=== PATIENT | female | born 1980 | race Hispanic/Latino ===

== ENCOUNTER 2019-02-23 23:19 | Emergency (ER) | payer BC ==
[2019-02-24 00:08] LABS: Protime INR 1.09
[2019-02-24 00:09] LABS: Absolute Lymphocytes (CBC) 2.8 K/uL (0.7-4.9); Absolute Monocytes 0.7 K/uL (0.1-1.3); Absolute Neutrophil 5.3 K/uL (1.8-8.0); Basophils % 0.3 % (0-1.3); Eosinophils % 3.8 % (0-4.4); Lymphocytes % 30.5 % (15.3-44.8); Monocytes % 7.6 % (3.3-12.3); RBC Red Blood Cell Count 4.45 M/uL (3.86-4.86)
[2019-02-24 00:21] LABS: ALT/SGPT 15 U/L (12-78); AST/SGOT 10 U/L (15-37); Albumin 3.4 g/dL (3.4-5.0); Alkaline Phosphatase 63 U/L (45-117); BUN Blood Urea Nitrogen 10 mg/dL (7-18); Bicarbonate 24 mmol/L (21-32); Bilirubin Direct 0.1 mg/dL (0-0.2); Bilirubin Total 0.3 mg/dL (0.2-1.0); Glucose Level 114 mg/dL (74-106); NT PRO-BNP 52 pg/mL (<125); Potassium 3.6 mmol/L (3.5-5.1); Protein, Total 6.9 g/dL (6.4-8.2); Sodium Level 141 mmol/L (136-145); Troponin (Emerg Dept Use Only) < 0.02 ng/mL (0.0-0.045)
--- NOTE | 2019-02-24 01:16 | ER ---
Nurse's Notes [facility] Name: Justine Jensen Age: 38 yrs Sex: Female : 1980 Arrival Date: 02/23/2019 Time: 23:20 Bed 24 Private MD: Reagan Fernandes T Diagnosis: Chest pain, unspecified Presentation: 02/23 23:26 Presenting complaint: Patient states: Chest pain radiating to left arm and jaw for 45 la1 mins, started while resting in bed. Transition of care: patient was not received from another setting of care. Onset of symptoms was February 23, 2019. Risk Assessment: Do you want to hurt yourself or someone else? Patient reports no desire to harm self or others. Initial Sepsis Screen: Does the patient meet any 2 criteria? No. Patient's initial sepsis screen is negative. Does the patient have a suspected source of infection? No. Patient's initial sepsis screen is negative. Care prior to arrival: None. 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 - Social history:: Smoking status: Patient/guardian denies using tobacco. - Ebola Screening: : No symptoms or risks identified at this time. Screenin/31 00:11 Abuse screen: Denies threats or abuse. Denies injuries from another. Nutritional mg2 screening: No deficits noted. Tuberculosis screening: No symptoms or risk factors identified. Fall Risk IV access (20 points). Assessment: 00:09 General: Appears in no apparent distress. comfortable, Behavior is calm, cooperative. mg2 Pain: Complains of pain in chest Pain radiates to neck and left arm Pain currently is 8 out of 10 on a pain scale. Quality of pain is described as heavy, pressure, tingling, Pain began gradually, 1 hour ago. Is intermittent. Neuro: Level of Consciousness is awake, alert, obeys commands, Oriented to person, place, time, situation. Cardiovascular: Capillary refill < 3 seconds Patient's skin is warm and dry. Cardiovascular: Reports chest pain. Respiratory: Airway is patent Respiratory effort is even, unlabored, Respiratory pattern is regular, symmetrical. GI: No signs and/or symptoms were reported involving the gastrointestinal system. : No signs and/or symptoms were reported regarding the genitourinary system. EENT: No signs and/or symptoms were reported regarding the EENT system. Derm: Skin is intact, is healthy with good turgor, Skin is pink, warm \T\ dry. normal. Musculoskeletal: Circulation, motion, and sensation intact. Capillary refill < 3 seconds. 01:29 Reassessment: Patient denies pain at this time. Patient states feeling better. mg2 Vital Signs: 02/23 23:27 BP 135 / 89; Pulse 89; Resp 16; Temp 98.1; Pulse Ox 98% on R/A; Weight 65.77 kg; Height la1 5 ft. 1 in. (154.94 cm); Pain 8/10; 02/24 01:14 BP 118 / 74; Pulse 85; Resp 18; Pulse Ox 99% on R/A; Pain 0/10; mg2 02/23 23:27 Body Mass Index 27.40 (65.77 kg, 154.94 cm) la1 ED Course: 02/23 23:20 Patient arrived in ED. am2 23:21 Reagan Fernandes MD is Private Physician. am2 23:27 Triage completed. la1 23:27 Arm band placed on left wrist. la1 23:36 Mahesh Cervantes, [place] is Primary Nurse. mg2 23:39 Gary Tolentino PA is PHCP. jr8 23:39 Gunner Mann MD is Attending Physician. jr8 02/24 00:11 No provider procedures requiring assistance completed. Inserted saline lock: 20 gauge mg2 in right antecubital area, using aseptic technique. Blood collected. Patient maintains SpO2 saturation greater than 95% on room air. 00:16 Patient has correct armband on for positive identification. panel monitor on. Pulse mg2 ox on. NIBP on. 00:32 XRAY Chest (1 view) In Process Unspecified. EDMS 01:15 Reagan Fernandes MD is Referral Physician. jr8 01:29 IV discontinued, intact, bleeding controlled, No redness/swelling at site. Pressure mg2 dressing applied. Administered Medications: No medications were administered Outcome: 01:15 Discharge ordered by MD. mccord 01:29 Discharged to home ambulatory, with family. mg2 :29 Condition: stable 01:29 Discharge instructions given to patient, family, Instructed on discharge instructions, follow up and referral plans. Demonstrated understanding of instructions, follow-up care. 01:30 Patient left the ED. mg2 Signatures: Dispatcher [employer] EDMS Gary Tolentino PA PA jr8 Leonardo Jacobson RN RN Cyndie Finch Michele, RN RN mg2
--- NOTE | 2019-02-24 01:16 | EDPHYS ---
Physician Documentation [facility] Name: Justine Jensen Age: 38 yrs Sex: Female : 1980 Arrival Date: 02/23/2019 Time: 23:20 Bed 24 Private MD: Reagan Fernandes T ED Physician Gunner Mann HPI: 02/24 01:08 This 38 yrs old Female presents to ER via Ambulatory with complaints of Chest jr8 Pain, Numbness Of Arm. 01:08 The patient or guardian reports chest pain that is located primarily in the anterior jr8 chest wall, left. The pain radiates to the left arm. Associated signs and symptoms: The patient has no apparent associated signs or symptoms. The chest pain is described as a pressure. Duration: The patient or guardian reports a single episode, that is now resolved. Modifying factors: The symptoms are alleviated by nothing. the symptoms are aggravated by nothing. Severity of pain: At its worst the pain was moderate in the emergency department the pain has resolved. The patient has not experienced similar symptoms in the past. The patient has not recently seen a physician. 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 - Social history:: Smoking status: Patient/guardian denies using tobacco. - Ebola Screening: : No symptoms or risks identified at this time. ROS: 02/24 01:08 Eyes: Negative for injury, pain, redness, and discharge, ENT: Negative for injury, jr8 pain, and discharge, Neck: Negative for injury, pain, and swelling, Respiratory: Negative for shortness of breath, cough, wheezing, and pleuritic chest pain, Abdomen/GI: Negative for abdominal pain, nausea, vomiting, diarrhea, and constipation, Back: Negative for injury and pain, MS/Extremity: Negative for injury and deformity, Skin: Negative for injury, rash, and discoloration, Neuro: Negative for headache, weakness, numbness, tingling, and seizure. Cardiovascular: Positive for chest pain, Negative for edema, orthopnea, palpitations, paroxysmal nocturnal dyspnea. Exam: 01:08 Eyes: Pupils equal round and reactive to light, extra-ocular motions intact. Lids and jr8 lashes normal. Conjunctiva and sclera are non-icteric and not injected. Cornea within normal limits. Periorbital areas with no swelling, redness, or edema. ENT: Nares patent. No nasal discharge, no septal abnormalities noted. Tympanic membranes are normal and external auditory canals are clear. Oropharynx with no redness, swelling, or masses, exudates, or evidence of obstruction, uvula midline. Mucous membranes moist. Neck: Trachea midline, no thyromegaly or masses palpated, and no cervical lymphadenopathy. Supple, full range of motion without nuchal rigidity, or vertebral point tenderness. No Meningismus. Chest/axilla: Normal chest wall appearance and motion. Nontender with no deformity. No lesions are appreciated. Cardiovascular: Regular rate and rhythm with a normal S1 and S2. No gallops, murmurs, or rubs. Normal PMI, no JVD. No pulse deficits. Respiratory: Lungs have equal breath sounds bilaterally, clear to auscultation and percussion. No rales, rhonchi or wheezes noted. No increased work of breathing, no retractions or nasal flaring. Abdomen/GI: Soft, non-tender, with normal bowel sounds. No distension or tympany. No guarding or rebound. No evidence of tenderness throughout. Back: No spinal tenderness. No costovertebral tenderness. Full range of motion. Skin: Warm, dry with normal turgor. Normal color with no rashes, no lesions, and no evidence of cellulitis. MS/ Extremity: Pulses equal, no cyanosis. Neurovascular intact. Full, normal range of motion. Neuro: Awake and alert, GCS 15, oriented to person, place, time, and situation. Cranial nerves II-XII grossly intact. Motor strength 5/5 in all extremities. Sensory grossly intact. Cerebellar exam normal. Normal gait. Vital Signs: 02/23 23:27 BP 135 / 89; Pulse 89; Resp 16; Temp 98.1; Pulse Ox 98% on R/A; Weight 65.77 kg; Height la1 5 ft. 1 in. (154.94 cm); Pain 8/10; 02/24 01:14 BP 118 / 74; Pulse 85; Resp 18; Pulse Ox 99% on R/A; Pain 0/10; mg2 02/23 23:27 Body Mass Index 27.40 (65.77 kg, 154.94 cm) la1 MDM: 02/23 23:39 Patient medically screened. jr8 02/24 01:08 Data reviewed: vital signs, nurses notes, lab test result(s), EKG, radiologic studies, jr8 plain films, and as a result, I will discharge patient. Data interpreted: Pulse oximetry: on room air is 98 %. Interpretation: normal. Counseling: I had a detailed discussion with the patient and/or guardian regarding: the historical points, exam findings, and any diagnostic results supporting the discharge/admit diagnosis, lab results, radiology results, the need for outpatient follow up, a family practitioner, to return to the emergency department if symptoms worsen or persist or if there are any questions or concerns that arise at home. ED course: First troponin negative. No acute findings on Xray or ECG. rest of blood work unremarkable. Patient still without CP. Advised her that we should trend and do a second troponin at the 4 hour rad of symptom onset. Patient feels much better and wants to go home. Advised her that I cannot give reasonable exclusion of cardiac event without doing another troponin. Patient understands but still wants to go home. Knows to come back if worse . 02/23 23:37 Order name: Basic Metabolic Panel mg2 02/23 23:37 Order name: CBC with Diff mg2 02/23 23:37 Order name: LFT's mg2 02/23 23:37 Order name: Magnesium mg2 02/23 23:37 Order name: NT PRO-BNP mg2 02/23 23:37 Order name: PT-INR; Complete Time: 00:21 mg2 02/23 23:37 Order name: Troponin (emerg Dept Use Only); Complete Time: 00:27 mg2 02/23 23:37 Order name: XRAY Chest (1 view) mg2 02/23 23:38 Order name: Basic Metabolic Panel; Complete Time: 00:27 EDMS 02/23 23:38 Order name: CBC with Automated Diff; Complete Time: 00:21 EDMS 02/23 23:38 Order name: Liver (Hepatic) Function; Complete Time: 00:27 EDMS 02/23 23:38 Order name: Magnesium; Complete Time: 00:27 EDMS 02/23 23:38 Order name: NT PRO-BNP; Complete Time: 00: EDFL 02/23 23:37 Order name: Cardiac monitoring; Complete Time: :47 [facility] 02/23 23:37 Order name: EKG - Nurse/Tech; Complete Time: :47 mg2 02/23 23:37 Order name: IV Saline Lock; Complete Time: :47 mg2 02/23 23:37 Order name: Labs collected and sent; Complete Time: : mg2 02/23 23:37 Order name: O2 Per Protocol; Complete Time: :47 mg2 02/23 23:37 Order name: O2 Sat Monitoring; Complete Time: :47 mg2 Administered Medications: No medications were administered Disposition: Co-signature as Attending Physician, Gunner Mann MD. alan Disposition: 02/24/19 01:15 Discharged to Home. Impression: Chest pain, unspecified. - Condition is Stable. - Discharge Instructions: Nonspecific Chest Pain, Chest Pain Observation. - Medication Reconciliation Form, Thank You Letter, Antibiotic Education, Prescription Opioid Use form. - Follow up: Reagan Fernandes MD; When: 2 - 3 days; Reason: Recheck today's complaints, Continuance of care, Re-evaluation by your physician. - Problem is new. - Symptoms have improved. Signatures: Dispatcher [employer] [facility] Gunner Mann MD MD pkl Gary Tolentino PA PA jr8 Leonardo Jacobson RN RN la1 Mahesh Cervantes RN RN mg2 Corrections: (The following items were deleted from the chart) 01:15 02/24/2019 01:15 Discharged to Home. Impression: Chest pain, unspecified. mg2 Condition is Stable. Forms are Medication Reconciliation Form, Thank You Letter, Antibiotic Education, Prescription Opioid Use. Follow up: Reagan Fernandes; When: 2 - 3 days; Reason: Recheck today's complaints, Continuance of care, Re-evaluation by your physician. Problem is new. Symptoms have improved. jr8
--- NOTE | 2019-02-24 08:49 | RAD REPORT ---
EXAM DESCRIPTION: RAD - Chest Single View - 02/24/2019 12:31 am CLINICAL HISTORY: Chest pain radiating to the left arm COMPARISON: May 2016 TECHNIQUE: AP portable chest image was obtained 0008 hours . FINDINGS: Lungs are clear. Lung markings are similar to comparison. Heart, vasculature and lung rad ings are all fractionally accentuated due to shallow inspiration Heart and vasculature are normal. No measurable pleural effusion and no pneumothorax. No acute bony abnormality seen. No acute aortic fin dings suspected. IMPRESSION: No acute cardiopulmonary process.
== END 2019-02-24 01:30 | disposition home or self-care (01) ==
LOC: ER 23:19
DX: R07.9 Chest pain, unspecified (principal)
CPT/HCPCS: 36415; 71045; 80048; 80076; 83735; 83880; 84484; 85025; 85610; 99285

== ENCOUNTER 2021-05-12 16:14 | Observation (INO) | payer BC ==
--- OUTSIDE RECORDS SUMMARY | 2021-05-12 16:16 | XMS REPORT | Continuity of Care Document ---
:1980 Author Organization [facility] t Address [address] [place] [address] Care Team Providers Name Role Phone Lab, Fam Pob I Attending Clinician Unavailable Doctor Unassigned, Name Attending Clinician Unavailable Problems This patient has no known problems. Allergies, Adverse Reactions, Alerts This patient has no known allergies or adverse reactions. Medications This patient has no known medications. Procedures This patient has no known procedures. Encounters Start End Encounter Admission Attending Care Care Encounter Source Date/Time Date/Time Type Type Clinicians Facility Department ID 2020-11-30 2020-11-30 Laboratory Lab, Adc [facility] [id number] 09:24:01 09:44:01 Only Fam Pob I Health [id number] [place] [id number] [facility] [id number] [address] 2020-11-30 2020-11-30 Letter Doctor SYBIL [id number] 00:00:00 00:00:00 (Out) UnassignedESME [id number] [place] [facility] [id number] 044 Results This patient has no known results.
[2021-05-12 17:25] LABS: Urine Blood 3+ (Negative); Urine Glucose Negative (Negative); Urine Protein Negative (Negative); Urine Specific Gravity 1.015 (1.005-1.030)
[2021-05-12] MEDS ORDERED: MORPHINE 4 MG/ML SYR ONE (18:04)
[2021-05-12] MEDS ORDERED: ONDANSETRON 4 MG/2 ML VIAL ONE (18:04)
[2021-05-12 18:05] LABS: ALT/SGPT 33 U/L (12-78); AST/SGOT 14 U/L (15-37); Absolute Lymphocytes (CBC) 2.4 K/uL (0.7-4.9); Albumin 3.9 g/dL (3.4-5.0); Alkaline Phosphatase 129 U/L (45-117); BUN Blood Urea Nitrogen 10 mg/dL (7-18); Basophils % 0.8 % (0-1.3); Bicarbonate 26 mmol/L (21-32); Bilirubin Direct 0.1 mg/dL (0-0.2); Bilirubin Total 0.4 mg/dL (0.2-1.0); Glucose Level 91 mg/dL (74-106); Hematocrit 40.9 % (36.0-45.0); Lipase 204 U/L (73-393); MPV 8.7 fL (7.6-11.3); Potassium 3.9 mmol/L (3.5-5.1); Protein, Total 7.9 g/dL (6.4-8.2); RBC Red Blood Cell Count 4.82 M/uL (3.86-4.86); Sodium Level 140 mmol/L (136-145)
--- NOTE | 2021-05-12 18:45 | RAD REPORT ---
EXAM DESCRIPTION: CTAbdomen Pelvis W Contrast - 05/12/2021 6:22 pm CLINICAL HISTORY: Abdominal pain. ABD PAIN COMPARISON: No comparisons TECHNIQUE: Biphasic CT imaging of the abdomen and pelvis was performed with 100 ml non-ionic IV cont rast. All CT scans are performed using dose optimization technique as appropriate and may include automated exposure control or mA/KV adjustment according to patient size. FINDINGS: The lung bases are clear. The liver, spleen, adrenal glands and kidneys are within normal limits. Subtle edematous appearance t o the midbody the pancreas. No bowel obstruction, free air, free fluid or abscess. The appendix is normal. No evidence of signi ficant lymphadenopathy. No suspicious bony findings. 36 mm left ovarian cyst. IMPRESSION: Early/mild findings of acute pancreatitis are possible. 36 mm left ovarian cyst or follicle.
[2021-05-12 19:23] LABS: Urine Specific Gravity/Preg 1.015 (1.005-1.030)
--- NOTE | 2021-05-12 19:30 | RAD REPORT ---
EXAM DESCRIPTION: US - Abdomen Exam Limited - 05/12/2021 7:11 pm CLINICAL HISTORY: abdominal pain COMPARISON: Abdomen Exam Limited dated 11/07/2016; Abdomen Pelvis W Contrast dated 05/12/2021 FINDINGS: The gallbladder demonstrates no gallstones. No pericholecystic fluid or gallbladder wall t hickening. The common bile duct is prominent measuring 9 mm and contains a small echogenic structure. . The liver demonstrates no findings of intrahepatic biliary dilatation. IMPRESSION: No gallstones are evident in gallbladder. Common bile duct is mildly prominent measuring 9 mm with questionable small echogenic structure withi n the a stone. Followup MRCP would be helpful evaluation.
--- NOTE | 2021-05-12 20:52 | ER ---
Nurse's Notes [facility] Name: Justine Jensen Age: 40 yrs Sex: Female : 1980 Arrival Date: 05/12/2021 Time: 16:15 Bed 14 Private MD: Reagan Fernandes T Diagnosis: Acute pancreatitis, unspecified Presentation: 05/12 16:48 Chief complaint: Patient states: Epigastric, upper abdominal pain radiating to the back ca1 started Monday. Denies N/V/D. Coronavirus screen: Client denies travel out of the [place] in the last 14 days. At this time, the client does not indicate any symptoms associated with coronavirus-19. Ebola Screen: Patient negative for fever greater than or equal to 101.5 degrees Fahrenheit, and additional compatible Ebola Virus Disease symptoms Patient denies exposure to infectious person. Patient denies travel to an Ebola-affected area in the 21 days before illness onset. No symptoms or risks identified at this time. Initial Sepsis Screen: Does the patient meet any 2 criteria? No. Patient's initial sepsis screen is negative. Does the patient have a suspected source of infection? No. Patient's initial sepsis screen is negative. Risk Assessment: Do you want to hurt yourself or someone else? Patient reports no desire to harm self or others. Onset of symptoms was May 12, 2021. 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 Flu vaccine is not up to date. - Social history:: Smoking status: Patient denies any tobacco usage or history of. Screenin:16 Abuse screen: Denies threats or abuse. Nutritional screening: No deficits noted. tw2 Tuberculosis screening: No symptoms or risk factors identified. Fall Risk None identified. Assessment: 17:12 Reassessment: pt given urine specimen cup and wipes for urine collection at this time. tw2 17:27 Reassessment: provider at bedside at this time. tw2 17:29 General: Appears in no apparent distress. uncomfortable, well groomed, Behavior is tw2 calm, cooperative, appropriate for age. Pain: Complains of pain in epigastric area Pain radiates to back. Neuro: Level of Consciousness is awake, alert, obeys commands, Oriented to person, place, time, situation. Cardiovascular: Patient's skin is warm and dry. Respiratory: Airway is patent Respiratory effort is even, unlabored, Respiratory pattern is regular, symmetrical. GI: Bowel sounds present X 4 quads. Abd is soft X 4 quads Reports epigastric pain, Patient currently denies diarrhea, nausea, vomiting. : No signs and/or symptoms were reported regarding the genitourinary system. EENT: No signs and/or symptoms were reported regarding the EENT system. Derm: No signs and/or symptoms reported regarding the dermatologic system. Musculoskeletal: Range of motion: intact in all extremities. 18:28 Reassessment: Patient appears in no apparent distress at this time. No changes from tw2 previously documented assessment. Patient and/or family updated on plan of care and expected duration. Pain level reassessed. Patient is alert, oriented x 3, equal unlabored respirations, skin warm/dry/pink. pt back from CT at this time needing to use the restroom at this time. 19:08 Reassessment: Patient appears in no apparent distress at this time. Patient and/or ad5 family updated on plan of care and expected duration. Pain level reassessed. Patient is alert, oriented x 3, equal unlabored respirations, skin warm/dry/pink. 20:15 Reassessment: Patient appears in no apparent distress at this time. Patient and/or ad5 family updated on plan of care and expected duration. Pain level reassessed. Patient is alert, oriented x 3, equal unlabored respirations, skin warm/dry/pink. Patient states feeling better. 21:50 Reassessment: Patient appears in no apparent distress at this time. No changes from ad5 previously documented assessment. Patient and/or family updated on plan of care and expected duration. Pain level reassessed. Vital Signs: 16:48 BP 125 / 81; Pulse 92; Resp 18 S; Temp 97.8(TE); Pulse Ox 100% on R/A; Pain 10/10; ca1 17:54 BP 123 / 87; Pulse 81; Resp 17; Pulse Ox 99% on R/A; tw2 19:06 BP 123 / 83; Pulse 69; Resp 16 S; Pulse Ox 98% on R/A; ad5 20:55 BP 127 / 84; Pulse 81; Resp 16 S; Pulse Ox 99% on R/A; ad5 21:50 BP 121 / 74; Pulse 88; Resp 16 S; Pulse Ox 98% on R/A; ad5 ED Course: 16:15 Patient arrived in ED. am2 16:15 Reagan Fernandes MD is Private Physician. am2 16:50 Triage completed. ca1 16:50 Arm band placed on right wrist. ca1 17:14 Basim Vegas PA is PHCP. jmm 17:14 Shaun Swenson MD is Attending Physician. jmm 17:16 Erica Valencia RN is Primary Nurse. tw2 17:28 Placed in gown. Bed in low position. Pulse ox on. NIBP on. tw2 17:50 Inserted saline lock: 20 gauge in right antecubital area, using aseptic technique. tw2 Blood collected. 18:22 CT Abd/Pelvis - IV Contrast Only In Process Unspecified. EDMS 19:11 US Abdomen Limited In Process Unspecified. EDMS 19:43 Primary Nurse role handed off by Erica Valencia, [place] eb 20:16 Memo Rollins is Primary Nurse. ad5 20:51 Roly Christian is Hospitalizing Provider. [facility] 22:07 No provider procedures requiring assistance completed. Patient admitted, IV remains in ad5 place. Administered Medications: 17:50 Drug: Zofran (Ondansetron) 4 mg Route: IVP; Site: right antecubital; tw2 19:02 Follow up: Response: No adverse reaction tw2 17:52 Drug: morphine 4 mg {Note: RASS 0.} Route: IVP; Site: right antecubital; tw2 19:01 Follow up: Response: No adverse reaction; Pain is decreased; RASS: Alert and Calm (0) tw2 Outcome: 20:51 Decision to Hospitalize by Provider. jmm 22:07 Admitted to ad5 22:07 Condition: stable 22:11 Admitted to Med/surg via wheelchair, Report called to BR[place]ON Isidro ad5 22:11 Instructed on the need for admit. 22:18 Patient left the ED. ad5 Signatures: Dispatcher [employer] EDMS MickaBasim pang PA PA jmm Wise, Tara, RN RN tw2 Cyndie Mcclelland am2 Letty Sosa Cheryl, RN RN ca1 Memo Rollins ad5
--- NOTE | 2021-05-12 20:52 | EDPHYS ---
Physician Documentation [facility] Name: Justine Jensen Age: 40 yrs Sex: Female : 1980 Arrival Date: 05/12/2021 Time: 16:15 Bed 14 Private MD: Reagan Fernandes T ED Physician Shaun Swenson HPI: 05/12 17:26 This 40 yrs old Female presents to ER via Ambulatory with complaints of jmm Abdominal Pain. 17:26 The patient presents with abdominal pain. Onset: The symptoms/episode began/occurred jmm gradually, 3 day(s) ago. The symptoms do not radiate. Associated signs and symptoms: Pertinent negatives: diarrhea, vomiting. The symptoms are described as achy. Modifying factors: The symptoms are alleviated by nothing, the symptoms are aggravated by nothing. This is a 40 year old female with no chronic medical conditions that presents to the ED with complaints of epigastric abdominal pain beginning this past Monday. Denies fever, vomiting, or diarrhea. . 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 Flu vaccine is not up to date. - Social history:: Smoking status: Patient denies any tobacco usage or history of. ROS: 17:26 Constitutional: Negative for fever, chills, and weight loss, Cardiovascular: Negative jmm for chest pain, palpitations, and edema, Respiratory: Negative for shortness of breath, cough, wheezing, and pleuritic chest pain. 17:26 Abdomen/GI: Positive for abdominal pain. 17:26 All other systems are negative. Exam: 17:26 Constitutional: This is a well developed, well nourished patient who is awake, alert, jmm and in no acute distress. Head/Face: atraumatic. Eyes: EOMI, no conjunctival erythema appreciated ENT: Moist Mucus Membranes Neck: Trachea midline, Supple Chest/axilla: Normal chest wall appearance and motion. Cardiovascular: Regular rate and rhythm. No edema appreciated Respiratory: Normal respirations, no respiratory distress appreciated 17:26 Back: Normal ROM Skin: General appearance color normal MS/ Extremity: Moves all extremities, no obvious deformities appreciated, no edema noted to the lower extremities Neuro: Awake and alert, normal gait Psych: Behavior is normal, Mood is normal, Patient is cooperative and pleasant 17:26 Abdomen/GI: Inspection: abdomen appears normal, Bowel sounds: normal, Palpation: soft, moderate abdominal tenderness, in the epigastric area. Vital Signs: 16:48 BP 125 / 81; Pulse 92; Resp 18 S; Temp 97.8(TE); Pulse Ox 100% on R/A; Pain 10/10; ca1 17:54 BP 123 / 87; Pulse 81; Resp 17; Pulse Ox 99% on R/A; tw2 19:06 BP 123 / 83; Pulse 69; Resp 16 S; Pulse Ox 98% on R/A; ad5 20:55 BP 127 / 84; Pulse 81; Resp 16 S; Pulse Ox 99% on R/A; ad5 21:50 BP 121 / 74; Pulse 88; Resp 16 S; Pulse Ox 98% on R/A; ad5 MDM: 17:26 Patient medically screened. kamilla 19:58 Data reviewed: vital signs, nurses notes. Counseling: I had a detailed discussion with arely the patient and/or guardian regarding: the historical points, exam findings, and any diagnostic results supporting the discharge/admit diagnosis, lab results, radiology results, the need for further work-up and treatment in the hospital. ED course: I discussed the patient with Dr. Patel whom will consult on the admission. . 20:50 ED course: I discussed the patient with [facility] whom accepted the patient to Dr. arely Christian's service. . 05/12 17:25 Order name: Urine Dipstick-Ancillary; Complete Time: 17:32 [facility] 05/12 17:27 Order name: Basic Metabolic Panel; Complete Time: 18:14 [facility] 05/12 17:27 Order name: CBC with Diff; Complete Time: 18:28 [facility] 05/12 17:27 Order name: Hepatic Function; Complete Time: 18:14 [facility] 05/12 17:27 Order name: Lipase; Complete Time: 18:14 [facility] 05/12 17:53 Order name: Urine --Ancillary (enter results); Complete Time: 19:27 05/12 17:27 Order name: IV Saline Lock; Complete Time: 17:54 [facility] 05/12 17:27 Order name: CT Abd/Pelvis - IV Contrast Only; Complete Time: 18:57 [facility] 05/12 17:29 Order name: US Abdomen Limited; Complete Time: 19:33 [facility] 05/12 21:20 Order name: CONS Physician Consult [facility] 05/12 21:45 Order name: SARS-COV-2 RT PCR [facility] 05/12 17:27 Order name: Labs collected and sent; Complete Time: 17:54 [facility] Administered Medications: 17:50 Drug: Zofran (Ondansetron) 4 mg Route: IVP; Site: right antecubital; tw2 19:02 Follow up: Response: No adverse reaction tw2 17:52 Drug: morphine 4 mg {Note: RASS 0.} Route: IVP; Site: right antecubital; tw2 19:01 Follow up: Response: No adverse reaction; Pain is decreased; RASS: Alert and Calm (0) tw2 Disposition: 05/13 07:27 Co-signature as Attending Physician, Shaun Swenson MD I agree with the assessment and kdr plan of care. Disposition: 05/12/21 20:51 Hospitalization ordered by Roly Christian for Inpatient Admission. Preliminary diagnosis is Acute pancreatitis, unspecified. - Bed requested for Telemetry/MedSurg (Inpatient). - Status is Inpatient Admission. ad5 - Condition is Stable. - Problem is new. - Symptoms are unchanged. Signatures: Dispatcher [employer] [facility] Starr Brady RN RN mw Rittger, Kevin, MD MD [facility] Basim Vegas PA PA [facility] Erica Valencia RN RN tw2 Paola Kyle RN RN ca1 Davidson, Andrea ad5 Corrections: (The following items were deleted from the chart) 05/12 20:52 20:32 CORONAVIRUS+MR.LAB.BRZ ordered. [facility] 21:59 20:51 Hospitalization Ordered by Roly Christian for Inpatient Admission. Preliminary diagnosis is Acute pancreatitis, unspecified. Bed requested for Telemetry/MedSurg (Inpatient). Status is Inpatient Admission. Condition is Stable. Problem is new. Symptoms are unchanged. [facility] 22:18 21:59 05/12/2021 20:51 Hospitalization Ordered by Roly Christian for Inpatient ad5 Admission. Preliminary diagnosis is Acute pancreatitis, unspecified. Bed requested for Telemetry/MedSurg (Inpatient). Status is Inpatient Admission. Condition is Stable. Problem is new. Symptoms are unchanged. mw
--- NOTE | 2021-05-12 21:53 | P.HP ---
Certification for Inpatient Patient admitted to: Inpatient With expected LOS: <2 Midnights Patient will require the following post-hospital care: None Practitioner: I am a practitioner with admitting privileges, knowledge of patient current condition, hospital course, and medical plan of care. Services: Services provided to patient in accordance with Admission requirements found in Title 42 Section 412.3 of the Code of Federal Regulations Patient History Date of Service: 05/12/21 Primary Care Provider: Dom Reason for admission: pancreatitis History of Present Illness: Ms. Jensen is a 40 yo F who presents with 10/10 epigastric abdominal pain radiating to the back beginning on Monday. Now, her pain is a 3/10 after receiving pain medication. She denies nausea and vomiting. Reports pain is worse with eating or drinking. At its worse, she couldn't drink water and it hurt to breathe. Symptoms mildly improve when she hunches over. She drinks alcohol occasionally. Was treated for H.pylori in 2017. CT shows early/mild findings of acute pancreatitis and a 36mm left ovarian cyst or follicle. Ultrasound shows no gallstones in gallbladder, CBD is mildly prominent measuring 9mm with questionable small echogenic structure within. Alk phos 129. Allergies No Known Allergies Allergy (Unverified 04/29/13 20:11) - Past Medical/Surgical History Has patient received pneumonia vaccine in the past: No Diabetic: No Past Medical History: Patient denies medical history -: tubal ligation -: c section Psychosocial/ Personal History: - Family History Mother -: Hypertension Father -: Lung disease, Diabetes - Social History Smoking Status: Never smoker Alcohol use: Yes CD- Drugs: No Caffeine use: Yes Place of Residence: Home Review of Systems 10-point ROS is otherwise unremarkable Gastrointestinal: Abdominal Pain, Other (poor appetite) Physical Examination - Physical Exam General: Alert, In no apparent distress HEENT: Atraumatic, PERRLA, Mucous membr. moist/pink, EOMI, Sclerae nonicteric Neck: Supple, 2+ carotid pulse no bruit, No LAD, Without JVD or thyroid abnormality Respiratory: Clear to auscultation bilaterally, Normal air movement Cardiovascular: Regular rate/rhythm, Normal S1 S2 Gastrointestinal: Normal bowel sounds, Soft and benign, Non-distended, No ascites, No masses, No rebound, No guarding, Tenderness Musculoskeletal: No tenderness Integumentary: No rashes Neurological: Normal gait, Normal speech, Normal strength at 5/5 x4 extr, Normal tone, Normal affect Lymphatics: No axilla or inguinal lymphadenopathy - Studies Laboratory Data (last 24 hrs) 05/12/21 17:37: WBC 11.10 H, Hgb 13.3, Hct 40.9, Plt Count 381 05/12/21 17:37: Sodium 140, Potassium 3.9, BUN 10, Creatinine 0.58, Glucose 91, Total Bilirubin 0.4, AST 14 L, ALT 33, Alkaline Phosphatase 129 H, Lipase 204 Assessment and Plan - Problems (Diagnosis) (1) Pancreatitis Current Visit: Yes Status: Acute Qualifiers: Chronicity: acute Pancreatitis type: unspecified pancreatitis type Acute pancreatitis complication: no infection or necrosis Qualified Code(s): K85.90 - Acute pancreatitis without necrosis or infection, unspecified (2) Dilated cbd, acquired Current Visit: Yes Status: Acute - Plan GI consulted MRCP in the AM, NPO continue IVF hydration with Lactated Ringers pain management as needed lipid panel pending Discharge Plan: Home Plan to discharge in: 24 Hours - Advance Directives Does patient have a Living Will: No Does patient have a Durable POA for Healthcare: No - Code Status/Comfort Care Code Status Assessed: Yes (full code ) Critical Care: No Time Spent Managing Pts Care (In Minutes): 70
[2021-05-12] MEDS ORDERED: MORPHINE 4 MG/ML SYR IV PRN (22:26)
[2021-05-12] MEDS ORDERED: KETOROLAC 30 MG/ML INJ IV ONE (22:26)
[2021-05-12] MEDS ORDERED: ACETAMINOPHEN 500 MG TAB PO PRN (22:26)
[2021-05-12] MEDS: Ringers Lactate 1,000 ML IV SCH (22:46)
[2021-05-12 23:12] VITALS: BMI 34.2
[2021-05-12 23:15] LABS: C-Reactive Protein 14.4 mg/L (<3.00)
[2021-05-12] MEDS: ONDANSETRON 4 MG/2 ML VIAL IV PRN (23:27)
[2021-05-13 06:20] LABS: Absolute Lymphocytes (CBC) 2.5 K/uL (0.7-4.9); Basophils % 0.8 % (0-1.3); Hematocrit 35.6 % (36.0-45.0); Lymphocytes % 26.3 % (15.3-44.8); MPV 8.6 fL (7.6-11.3); RBC Red Blood Cell Count 4.24 M/uL (3.86-4.86)
[2021-05-13 06:36] LABS: ALT/SGPT 29 U/L (12-78); AST/SGOT 16 U/L (15-37); Albumin 3.4 g/dL (3.4-5.0); Alkaline Phosphatase 117 U/L (45-117); BUN Blood Urea Nitrogen 13 mg/dL (7-18); Bicarbonate 27 mmol/L (21-32); Bilirubin Total 0.6 mg/dL (0.2-1.0); Glucose Level 100 mg/dL (74-106); Magnesium 2.2 mg/dL (1.8-2.4); Phosphorus 3.7 mg/dL (2.5-4.9); Potassium 3.9 mmol/L (3.5-5.1); Protein, Total 6.9 g/dL (6.4-8.2); Sodium Level 140 mmol/L (136-145); Thyroid Stimulating Hormone 0.091 uIU/mL (0.360-3.740)
[2021-05-13] MEDS: Ringers Lactate 1,000 ML IV SCH (07:00)
[2021-05-13] MEDS ORDERED: LORazepam 2 MG/ML VIAL IV ONE (07:26)
--- NOTE | 2021-05-13 09:18 | RAD REPORT ---
EXAM DESCRIPTION: MRI - Cholangiogram - 05/13/2021 8:34 am CLINICAL HISTORY: Pancreatitis, abdominal pain COMPARISON: CT study May 12, ultrasound May 12 TECHNIQUE: Axial and coronal heavily T2 weighted sequences were obtained. Coronal T2 HASTE fat satur ation static and coronal multiplane reconstruction imaging generated and reviewed. Horizontal and nixon tical axis rotational views obtained using maximum intensity projection (MIP) protocol. FINDINGS: No stones or filling defects identifiable within the gallbladder. The extrahepatic biliary tree is 8 mm in maximum diameter showing normal tapering into the head of the pancreas. Pancreatic d uct is prominent in the head of the pancreas 4 mm in size. No common duct stone, stricture, mass or o ther suspicious finding identifiable. IMPRESSION: MRCP examination shows no duct stone, stricture, mass or other suspicious finding.
[2021-05-13 10:03] VITALS: O2SAT 97
[2021-05-13] MEDS: ONDANSETRON 4 MG/2 ML VIAL IV PRN (12:37)
[2021-05-13 12:40] VITALS: TEMP 97.6
--- NOTE | 2021-05-13 13:26 | P.DS ---
Admission Date: 05/12/21 Discharge Date: 05/13/21 Primary Care Provider: Dom Disposition: ROUTINE DISCHARGE Discharge Condition: FAIR Reason for Admission: pancreatitis - Problems (1) Acute pancreatitis Current Visit: Yes Status: Acute Brief History of Present Illness: 40-year-old woman presented to the emergency department with a complaint of epigastric pain of maximum intensity 10/10, worse with eating and drinking. Patient was previously treated for H. pylori. Imaging done in the emergency department suggest mild acute pancreatitis. Right upper quadrant sono showed no gallstones. CT abdomen reported mild CBD dilatation. Lipase level was within normal limit. Patient hospitalized for further management. Hospital Course: Patient placed under observation on the medical floor and treated with supportive measures including IV fluids. She was initially kept NPO but later tolerated liquid diet. MRCP was performed which did not show any common bile duct stone. Ultrasound shows no gallstones. Patient reports drinking alcohol a few days prior to the onset of her symptoms. The acute pancreatitis could be alcohol related. Patient advised to avoid drinking alcohol. Patient's symptoms resolved and deemed stable for discharge. Vital Signs/Physical Exam: Temp Pulse Resp BP Pulse Ox 97.6 F 79 18 128/82 98 05/13/21 12:00 05/13/21 12:00 05/13/21 12:37 05/13/21 12:00 05/13/21 12:37 General: Alert, In no apparent distress, Oriented x3 HEENT: Mucous membr. moist/pink Neck: Supple, JVD not distended Respiratory: Clear to auscultation bilaterally, Normal air movement Cardiovascular: No edema, Regular rate/rhythm, Normal S1 S2 Gastrointestinal: Normal bowel sounds, Soft and benign, Non-distended, No tenderness Musculoskeletal: No swelling Integumentary: No rashes Neurological: Normal strength at 5/5 x4 extr Laboratory Data at Discharge: WBC 9.60 K/uL (4.3-10.9) 05/13/21 05:58 Hgb 12.1 g/dL (12.0-15.0) 05/13/21 05:58 Hct 35.6 % (36.0-45.0) L 05/13/21 05:58 Plt Count 339 K/uL (152-406) 05/13/21 05:58 Sodium 140 mmol/L (136-145) 05/13/21 05:58 Potassium 3.9 mmol/L (3.5-5.1) 05/13/21 05:58 BUN 13 mg/dL (7-18) 05/13/21 05:58 Creatinine 0.56 mg/dL (0.55-1.3) 05/13/21 05:58 Glucose 100 mg/dL (74-106) 05/13/21 05:58 Phosphorus 3.7 mg/dL (2.5-4.9) 05/13/21 05:58 Magnesium 2.2 mg/dL (1.8-2.4) 05/13/21 05:58 Total Bilirubin 0.6 mg/dL (0.2-1.0) 05/13/21 05:58 AST 16 U/L (15-37) 05/13/21 05:58 ALT 29 U/L (12-78) 05/13/21 05:58 Alkaline Phosphatase 117 U/L (45-117) 05/13/21 05:58 Triglycerides 117 mg/dL (<150) 05/13/21 05:58 Cholesterol 147 mg/dL (<200) 05/13/21 05:58 HDL Cholesterol 43 mg/dL (40-60) 05/13/21 05:58 Cholesterol/HDL Ratio 3.42 05/13/21 05:58 Amylase 59 U/L (25-115) 05/12/21 22:51 Lipase 204 U/L (73-393) 05/12/21 17:37 Home Medications: Quetiapine [Seroquel*] 1 tab PO BEDTIME 05/13/21 Physician Discharge Instructions: Please stick to clear liquid for the next 2 days and then advanced diet as tolerated. Diet: Regular (Clear liquid) Activity: Ad altagracia Followup: Reagan Fernandes MD [Primary Care Provider] - 1-2 Weeks
[2021-05-13 17:04] VITALS: BP 97/54
[2021-05-13] MEDS ORDERED: QUETIAPINE 25 MG TAB PO SCH (21:00)
== END 2021-05-13 18:04 | disposition home or self-care (01) ==
LOC: ER 16:14 → INTOOBSV 21:27 → ERHOLD 21:27 → 2ND 22:01
PROVIDERS: ADMIT Internal Medicine; ATTEND Internal Medicine
DX: K85.90 Acute pancreatitis without necrosis or infection, unspecified (principal); Z20.822 Contact with and (suspected) exposure to COVID-19
CPT/HCPCS: 85025 ×2; 80048; 36415; 82150; 83735; 81025; 84100; 80061; 80076; 84443; 81003; 84439; 83690; 80053; 86140; 74177; 74181; 76705; 94760 ×2; U0003; Q9967; J7120 ×2; J2405 ×3; G0378 ×3; 96374; 96375; 99285

== ENCOUNTER → 2023-11-21 | Emergency (ER) | payer SELFPAY ==
[~2023-11-21] MED LIST: ACETAMINOPHEN 500 MG TAB ONE; FAMOTIDINE 20 MG/2 ML VIAL IV ONE; IBUPROFEN 200 MG TAB PO ONE; IBUPROFEN 400 MG TAB ONE; KETOROLAC 30 MG/ML INJ ONE; NA CHLORIDE 0.9% 1,000 ML ONE; ONDANSETRON 4 MG/2 ML VIAL ONE
--- OUTSIDE RECORDS SUMMARY | 2023-11-21 18:05 | XMS REPORT | Continuity of Care Document ---
Author Name Unknown Address [address] [facility] [address] [place] [address] [facility] thconnect Address [address] [facility] 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 Kel BYRD Attending Clinician KEL GOLDSMITH Attending Clinician Unavailable DANA [facility] Attending Clinician Rowena vailable Pob, Adc Lab Main Attending Clinician Unavailteri Barry RN, Flakita Attending Clinician UnavailRoselia Cobb MA Attending Clinician UnaLuiza Elliott Attending Clinician [phone] Chito Hart MD, Edwardo Attending Clinician [phone] Lab, Adc Fam Pob I Attending Clinician Nelli Sandoval Attending Clinician [phone] NELLI CURRY Attending Clinician Unavailable PRAVEEN ROMAN Attending Clinician Unavailable [email or web address]_S Admitting Clinician Unavailkieran Saldaña MD, [place] Admitting Clinician [phone] Payers Payer Name Policy Type Policy Number Effective Date Expirati on Date Source [facility] [id number] 2015 00:00:00 Problems Condition Name Condition Details Condition Category Status Onset Date Resolution Date Last Treatment Date Treating Clinician Comments Source Secondary pancreatic insufficie ncy Secondary pancreatic insufficie ncy Disease Active 06-09 00:00: 00 [facility] Hypothyroi dism due to Zac' s thyroiditi s Hypothyroi dism due to Zac' s thyroiditi s Disease Active 07-09 00:00: 00 [facility] Insomnia, unspecifie d type Insomnia, unspecifie d type Disease Active 07-09 00:00: 00 [facility] Migraine without status migrainosu s, not intractabl e, unspecifie d migraine type Migraine without status migrainosu s, not intractabl e, unspecifie d migraine type Disease Active 07-09 00:00: 00 [facility] TIA (transient ischemic attack) TIA (transient ischemic attack) Disease Active 07-02 00:00: 00 [facility] Allergies, Adverse Reactions, Alerts Allergy Name Allergy Type Status Severity Reaction(s) Onset Date Inactive Date Treating Clinician Comments Source NO KNOWN ALLERGIE S Drug Class Active [facility] Social History Social Habit Start Date Stop Date Quantity Comments Source Gender identity [facility] Sexual orientation U [facility] History of Social function 2023-06-09 00:00:00 2023-06-09 00:00:00 [facility] Tobacco use and exposure 2021-07-02 00:00:00 2021-07-02 00:00:00 Smokeless tobacco non-user [facility] Sex Assigned At 1980 00:00:00 1980 00:00:00 [facility] Smoking Status Start Date Stop Date Source Never smoked tobacco [facility] Medications Ordered Medication Name Filled Medication Name Start Date Stop Date Current Medication? Ordering Clinician Indication Dosage Frequency Signature (SIG) Comments Components Source levothyroxi ne 100 mcg tablet 06-09 00:00: 00 Yes [id number] 100ug Take 1 tablet by mouth every morning. [facility] levothyroxi ne 100 mcg tablet 06-09 00:00: 00 Yes [id number] 100ug Take 1 tablet by mouth every morning. [facility] levothyroxi ne 100 mcg tablet 06-09 00:00: 00 Yes [id number] 100ug Take 1 tablet by mouth every morning. [facility] levothyroxi ne 100 mcg tablet 06-05 00:00: 00 Yes [id number] TAKE ONE TABLET BY MOUTH EVERY MORNING [facility] levothyroxi ne 100 mcg tablet 06-05 00:00: 00 06-09 00:00 :00 No [id number] TAKE ONE TABLET BY MOUTH EVERY MORNING [facility] levothyroxi ne 100 mcg tablet 06-05 00:00: 00 06-09 00:00 :00 No [id number] TAKE ONE TABLET BY MOUTH EVERY MORNING [facility] levothyroxi ne (SYNTHROID) 100 mcg tablet 12-09 00:00: 00 Yes [id number] 100ug Take 1 tablet by mouth every morning. [facility] levothyroxi ne (SYNTHROID) 100 mcg tablet 12-09 00:00: 00 Yes [id number] 100ug Take 1 tablet by mouth every morning. [facility] levothyroxi ne (SYNTHROID) 100 mcg tablet 12-09 00:00: 00 Yes [id number] 100ug Take 1 tablet by mouth every morning. [facility] levothyroxi ne (SYNTHROID) 100 mcg tablet 12-09 00:00: 00 Yes [id number] 100ug Take 1 tablet by mouth every morning. [facility] levothyroxi ne (SYNTHROID) 100 mcg tablet 12-09 00:00: 00 06-05 00:00 :00 No [id number] 100ug Take 1 tablet by mouth every morning. [facility] montelukast 10 mg tablet 2021-0 5-06 08:37: 27 Yes 10mg Take 10 mg by mouth. [facility] montelukast 10 mg tablet 2-0 5-06 08:37: 27 Yes 10mg Take 10 mg by mouth. [facility] montelukast 10 mg tablet 2021-0 5-06 08:37: 27 Yes 10mg Take 10 mg by mouth. [facility] montelukast 10 mg tablet 2021-0 5-06 08:37: 27 Yes 10mg Take 10 mg by mouth. [facility] montelukast 10 mg tablet 2021-0 5-06 08:37: 27 Yes 10mg Take 10 mg by mouth. [facility] montelukast 10 mg tablet 2021-0 5-06 08:37: 27 Yes 10mg Take 10 mg by mouth. [facility] montelukast 10 mg tablet 2021-0 5-06 08:37: 27 Yes 10mg Take 10 mg by mouth. [facility] montelukast 10 mg tablet 2021-0 5-06 08:37: 27 Yes 10mg Take 10 mg by mouth. [facility] montelukast 10 mg tablet 2021-0 5-06 08:37: 27 Yes 10mg Take 10 mg by mouth. [facility] montelukast 10 mg tablet 2021-0 5-06 08:37: 27 Yes 10mg Take 10 mg by mouth. [facility] montelukast 10 mg tablet 2-0 5-06 08:37: 27 Yes 10mg Take 10 mg by mouth. [facility] montelukast 10 mg tablet 2021-0 5-06 08:37: 27 Yes 10mg Take 10 mg by mouth. [facility] montelukast 10 mg tablet 2022-0 5-06 08:37: 27 Yes 10mg Take 10 mg by mouth. [facility] montelukast 10 mg tablet 2-0 5-06 08:37: 27 Yes 10mg Take 10 mg by mouth. [facility] montelukast 10 mg tablet 0 04-01 08:37: 27 Yes 10mg Take 10 mg by mouth. [facility] levothyroxi ne (SYNTHROID) 112 mcg tablet 0 04-01 00:00: 00 Yes [id number] 112ug Take 1 tablet by mouth every morning. [facility] levothyroxi ne (SYNTHROID) 112 mcg tablet 04-01 00:00: 00 Yes [id number] 112ug Take 1 tablet by mouth every morning. [facility] levothyroxi ne (SYNTHROID) 112 mcg tablet 04-01 00:00: 00 Yes [id number] 112ug Take 1 tablet by mouth every morning. [facility] levothyroxi ne (SYNTHROID) 112 mcg tablet 04-01 00:00: 00 Yes [id number] 112ug Take 1 tablet by mouth every morning. [facility] levothyroxi ne (SYNTHROID) 112 mcg tablet 04-01 00:00: 00 Yes [id number] 112ug Take 1 tablet by mouth every morning. [facility] levothyroxi ne (SYNTHROID) 112 mcg tablet 04-01 00:00: 00 12-09 00:00 :00 No [id number] 112ug Take 1 tablet by mouth every morning. [facility] levothyroxi ne (SYNTHROID) 112 mcg tablet 04-01 00:00: 00 12-09 00:00 :00 No [id number] 112ug Take 1 tablet by mouth every morning. [facility] LEVOTHYROXI NE 100 mcg tablet 4-14 00:00: 00 04-01 00:00 :00 No [id number] TAKE ONE TABLET BY MOUTH EVERY MORNING [facility] aspirin 81 mg EC tablet 2020-11 00:00: 00 Yes [facility] aspirin 81 mg EC tablet 2020-11 00:00: 00 Yes [facility] aspirin 81 mg EC tablet 2020-11 00:00: 00 Yes [facility] aspirin 81 mg EC tablet 2020-11 00:00: 00 Yes [facility] aspirin 81 mg EC tablet 2020-11 00:00: 00 Yes [facility] aspirin 81 mg EC tablet 2020-11 00:00: 00 Yes [facility] aspirin 81 mg EC tablet 2020-11 00:00: 00 Yes [facility] aspirin 81 mg EC tablet 2020-11 00:00: 00 Yes [facility] aspirin 81 mg EC tablet 2020-11 00:00: 00 Yes [facility] aspirin 81 mg EC tablet 2020-11 00:00: 00 Yes [facility] aspirin 81 mg EC tablet 2020-11 00:00: 00 Yes [facility] aspirin 81 mg EC tablet 2020-11 00:00: 00 Yes [facility] aspirin 81 mg EC tablet 2020-11 00:00: 00 Yes [facility] aspirin 81 mg EC tablet 2020-11 00:00: 00 Yes [facility] aspirin 81 mg EC tablet 2020-11 00:00: 00 Yes [facility] pantoprazol e 40 mg EC tablet 2020-11 00:00: 00 Yes [facility] pantoprazol e 40 mg EC tablet 2020-11 00:00: 00 Yes [facility] pantoprazol e 40 mg EC tablet 2020-11 00:00: 00 Yes [facility] pantoprazol e 40 mg EC tablet 2020-11 00:00: 00 Yes [facility] pantoprazol e 40 mg EC tablet 2020-11 00:00: 00 Yes [facility] pantoprazol e 40 mg EC tablet 2020-11 00:00: 00 Yes [facility] pantoprazol e 40 mg EC tablet 2020-11 00:00: 00 Yes [facility] pantoprazol e 40 mg EC tablet 2020-11 00:00: 00 Yes [facility] pantoprazol e 40 mg EC tablet 2020-11 00:00: 00 Yes [facility] pantoprazol e 40 mg EC tablet 2020-11 00:00: 00 Yes [facility] pantoprazol e 40 mg EC tablet 2020-11 00:00: 00 Yes [facility] pantoprazol e 40 mg EC tablet 2020-11 00:00: 00 Yes [facility] pantoprazol e 40 mg EC tablet 2020-11 00:00: 00 Yes [facility] pantoprazol e 40 mg EC tablet 2020-11 00:00: 00 Yes [facility] pantoprazol e 40 mg EC tablet 2020-11 00:00: 00 Yes [facility] neomycin-po lymyxin-hyd rocortisone otic solution 2020-11 00:00: 00 Yes [facility] neomycin-po lymyxin-hyd rocortisone otic solution 2020-11 00:00: 00 Yes [facility] neomycin-po lymyxin-hyd rocortisone otic solution 2020-11 00:00: 00 Yes [facility] neomycin-po lymyxin-hyd rocortisone otic solution 2020-11 00:00: 00 Yes [facility] neomycin-po lymyxin-hyd rocortisone otic solution 2020-11 00:00: 00 Yes [facility] neomycin-po lymyxin-hyd rocortisone otic solution 2020-11 00:00: 00 Yes [facility] neomycin-po lymyxin-hyd rocortisone otic solution 2020-11 00:00: 00 Yes [facility] neomycin-po lymyxin-hyd rocortisone otic solution 2020-11 00:00: 00 Yes [facility] neomycin-po lymyxin-hyd rocortisone otic solution 2020-11 00:00: 00 Yes [facility] neomycin-po lymyxin-hyd rocortisone otic solution 2020-11 00:00: 00 Yes [facility] neomycin-po lymyxin-hyd rocortisone otic solution 2020-11 00:00: 00 Yes [facility] neomycin-po lymyxin-hyd rocortisone otic solution 2020-11 00:00: 00 Yes [facility] neomycin-po lymyxin-hyd rocortisone otic solution 2020-11 00:00: 00 Yes [facility] neomycin-po lymyxin-hyd rocortisone otic solution 2020-11 00:00: 00 Yes [facility] neomycin-po lymyxin-hyd rocortisone otic solution 2020-11 00:00: 00 Yes [facility] azithromyci n 250 mg tablet 2020-11 00:00: 00 Yes [facility] azithromyci n 250 mg tablet 2020-11 00:00: 00 Yes [facility] azithromyci n 250 mg tablet 2020-11 00:00: 00 Yes [facility] azithromyci n 250 mg tablet 2020-11 00:00: 00 Yes [facility] azithromyci n 250 mg tablet 2020-11 00:00: 00 Yes [facility] azithromyci n 250 mg tablet 2020-11 00:00: 00 Yes [facility] azithromyci n 250 mg tablet 2020-11 00:00: 00 Yes [facility] azithromyci n 250 mg tablet 2020-11 00:00: 00 Yes [facility] azithromyci n 250 mg tablet 2020-11 00:00: 00 Yes [facility] azithromyci n 250 mg tablet 2020-11 00:00: 00 Yes [facility] azithromyci n 250 mg tablet 2020-11 00:00: 00 Yes [facility] azithromyci n 250 mg tablet 2020-11 00:00: 00 Yes [facility] azithromyci n 250 mg tablet 2020-11 00:00: 00 Yes [facility] 2020-11 00:00: 00 Yes [facility] azith[facility] 250 mg tablet 2020-11 00:00: 00 Yes [facility] nebivoloL 5 mg tablet 08-23 00:00: 00 04-01 00:00 :00 No [facility] quetiapine fumarate (SEROQUEL ORAL) 07-09 08:18: 05 Yes 25mg Take 25 mg by mouth daily. [facility] MULTIVITAMI N ORAL 07-09 08:18: 05 Yes Take by mouth. [facility] ascorbic acid (VITAMIN C ORAL) 0 07-09 08:18: 05 Yes Take by mouth. [facility] quetiapine fumarate (SEROQUEL ORAL) 07-09 08:18: 05 Yes 25mg Take 25 mg by mouth daily. [facility] MULTIVITAMI N ORAL 07-09 08:18: 05 Yes Take by mouth. [facility] ascorbic acid (VITAMIN C ORAL) 0 07-09 08:18: 05 Yes Take by mouth. [facility] quetiapine fumarate (SEROQUEL ORAL) 0 07-09 08:18: 05 Yes 25mg Take 25 mg by mouth daily. [facility] MULTIVITAMI N ORAL 0 07-09 08:18: 05 Yes Take by mouth. [facility] ascorbic acid (VITAMIN C ORAL) 0 07-09 08:18: 05 Yes Take by mouth. [facility] quetiapine fumarate (SEROQUEL ORAL) 07-09 08:18: 05 Yes 25mg Take 25 mg by mouth daily. [facility] MULTIVITAMI N ORAL 07-09 08:18: 05 Yes Take by mouth. [facility] ascorbic acid (VITAMIN C ORAL) 07-09 08:18: 05 Yes Take by mouth. [facility] quetiapine fumarate (SEROQUEL ORAL) 07-09 08:18: 05 Yes 25mg Take 25 mg by mouth daily. [facility] MULTIVITAMI N ORAL 07-09 08:18: 05 Yes Take by mouth. [facility] ascorbic acid (VITAMIN C ORAL) 07-09 08:18: 05 Yes Take by mouth. [facility] quetiapine fumarate (SEROQUEL ORAL) 07-09 08:18: 05 Yes 25mg Take 25 mg by mouth daily. [facility] MULTIVITAMI N ORAL 07-09 08:18: 05 Yes Take by mouth. [facility] ascorbic acid (VITAMIN C ORAL) 07-09 08:18: 05 Yes Take by mouth. [facility] quetiapine fumarate (SEROQUEL ORAL) 07-09 08:18: 05 Yes 25mg Take 25 mg by mouth daily. [facility] MULTIVITAMI N ORAL 07-09 08:18: 05 Yes Take by mouth. [facility] ascorbic acid (VITAMIN C ORAL) 0 07-09 08:18: 05 Yes Take by mouth. [facility] quetiapine fumarate (SEROQUEL ORAL) 0 07-09 08:18: 05 Yes 25mg Take 25 mg by mouth daily. [facility] MULTIVITAMI N ORAL 0 07-09 08:18: 05 Yes Take by mouth. [facility] ascorbic acid (VITAMIN C ORAL) 0 07-09 08:18: 05 Yes Take by mouth. [facility] quetiapine fumarate (SEROQUEL ORAL) 07-09 08:18: 05 Yes 25mg Take 25 mg by mouth daily. [facility] MULTIVITAMI N ORAL 07-09 08:18: 05 Yes Take by mouth. [facility] ascorbic acid (VITAMIN C ORAL) 07-09 08:18: 05 Yes Take by mouth. [facility] quetiapine fumarate (SEROQUEL ORAL) 07-09 08:18: 05 Yes 25mg Take 25 mg by mouth daily. [facility] MULTIVITAMI N ORAL 07-09 08:18: 05 Yes Take by mouth. [facility] ascorbic acid (VITAMIN C ORAL) 07-09 08:18: 05 Yes Take by mouth. [facility] quetiapine fumarate (SEROQUEL ORAL) 07-09 08:18: 05 Yes 25mg Take 25 mg by mouth daily. [facility] MULTIVITAMI N ORAL 07-09 08:18: 05 Yes Take by mouth. [facility] ascorbic acid (VITAMIN C ORAL) 07-09 08:18: 05 Yes Take by mouth. [facility] quetiapine fumarate (SEROQUEL ORAL) 07-09 08:18: 05 Yes 25mg Take 25 mg by mouth daily. [facility] MULTIVITAMI N ORAL 07-09 08:18: 05 Yes Take by mouth. [facility] ascorbic acid (VITAMIN C ORAL) 0 07-09 08:18: 05 Yes Take by mouth. [facility] quetiapine fumarate (SEROQUEL ORAL) 0 07-09 08:18: 05 Yes 25mg Take 25 mg by mouth daily. [facility] MULTIVITAMI N ORAL 0 07-09 08:18: 05 Yes Take by mouth. [facility] ascorbic acid (VITAMIN C ORAL) 0 07-09 08:18: 05 Yes Take by mouth. [facility] quetiapine fumarate (SEROQUEL ORAL) 07-09 08:18: 05 Yes 25mg Take 25 mg by mouth daily. [facility] MULTIVITAMI N ORAL 07-09 08:18: 05 Yes Take by mouth. [facility] ascorbic acid (VITAMIN C ORAL) 07-09 08:18: 05 Yes Take by mouth. [facility] quetiapine fumarate (SEROQUEL ORAL) 07-09 08:18: 05 Yes 25mg Take 25 mg by mouth daily. [facility] MULTIVITAMI N ORAL 07-09 08:18: 05 Yes Take by mouth. [facility] ascorbic acid (VITAMIN C ORAL) 07-09 08:18: 05 Yes Take by mouth. [facility] topiramate 25 mg tablet 07-05 00:00: 00 Yes [id number] 25mg Take 1 tablet by mouth 2 (two) times daily. [facility] topiramate 25 mg tablet 07-05 00:00: 00 Yes [id number] 25mg Take 1 tablet by mouth 2 (two) times daily. [facility] topiramate 25 mg tablet 07-05 00:00: 00 Yes [id number] 25mg Take 1 tablet by mouth 2 (two) times daily. [facility] topiramate 25 mg tablet 07-05 00:00: 00 Yes [id number] 25mg Take 1 tablet by mouth 2 (two) times daily. [facility] topiramate 25 mg tablet 07-05 00:00: 00 Yes [id number] 25mg Take 1 tablet by mouth 2 (two) times daily. [facility] topiramate 25 mg tablet 07-05 00:00: 00 Yes [id number] 25mg Take 1 tablet by mouth 2 (two) times daily. [facility] topiramate 25 mg tablet 2020-0 07-05 00:00: 00 Yes [id number] 25mg Take 1 tablet by mouth 2 (two) times daily. [facility] topiramate 25 mg tablet 2020-0 07-05 00:00: 00 Yes [id number] 25mg Take 1 tablet by mouth 2 (two) times daily. [facility] topiramate 25 mg tablet 2020-0 07-05 00:00: 00 Yes [id number] 25mg Take 1 tablet by mouth 2 (two) times daily. [facility] topiramate 25 mg tablet 2020-0 07-05 00:00: 00 Yes [id number] 25mg Take 1 tablet by mouth 2 (two) times daily. [facility] topiramate 25 mg tablet 2020-0 07-05 00:00: 00 Yes [id number] 25mg Take 1 tablet by mouth 2 (two) times daily. [facility] topiramate 25 mg tablet 2020-0 07-05 00:00: 00 Yes [id number] 25mg Take 1 tablet by mouth 2 (two) times daily. [facility] topiramate 25 mg tablet 2020-0 07-05 00:00: 00 Yes [id number] 25mg Take 1 tablet by mouth 2 (two) times daily. [facility] topiramate 25 mg tablet 2020-0 07-05 00:00: 00 Yes [id number] 25mg Take 1 tablet by mouth 2 (two) times daily. [facility] topiramate 25 mg tablet 2020-0 07-05 00:00: 00 Yes [id number] 25mg Take 1 tablet by mouth 2 (two) times daily. [facility] Immunizations Ordered Immunization Name Filled Immunization Name Date Status Comments Source TDAP 2022-11-17 00:00:00 Completed [facility] TDAP 2022-11-17 00:00:00 Completed [facility] TDAP 2022-11-17 00:00:00 Completed [facility] TDAP Unknown Completed [facility] Vital Signs Vital Name Observation Time Observation Value Comments S maryam Systolic blood pressure 2023-06-09 14:37:00 127 mm[Hg] [facility] Diastolic blood pressure 2023-06-09 14:37:00 75 mm[Hg] [facility] Heart rate 2023-06-09 14:37:00 69 /min [facility] Body temperature 2023-06-09 14:37:00 35.72 Evangelina [facility] Respiratory rate 2023-06-09 14:37:00 16 /min [facility] Body height 2023-06-09 14:37:00 154.9 cm [facility] Body weight 2023-06-09 14:37:00 78.654 kg [facility] BMI 2023-06-09 14:37:00 32.76 kg/m2 [facility] Oxygen saturation in Arterial blood by Pulse oximetry 2023-06-09 14:37:00 100 /min [facility] Systolic blood pressure 2022-12-09 16:05:00 128 mm[Hg] [facility] Diastolic blood pressure 2022-12-09 16:05:00 84 mm[Hg] [facility] Heart rate 2022-12-09 16:05:00 87 /min [facility] Body height 2022-12-09 16:05:00 154.9 cm [facility] Body weight 2022-12-09 16:05:00 75.297 kg [facility] BMI 2022-12-09 16:05:00 31.37 kg/m2 [facility] Oxygen saturation in Arterial blood by Pulse oximetry 2022-12-09 16:05:00 98 /min [facility] Systolic blood pressure 2022-04-01 13:33:00 108 mm[Hg] [facility] Diastolic blood pressure 2022-04-01 13:33:00 76 mm[Hg] [facility] Heart rate 2022-04-01 13:33:00 69 /[facility] 2022-04-01 13:33:00 16 /min [facility] Body height 2022-04-01 13:33:00 157.5 cm [facility] Body weight 2022-04-01 13:33:00 [facility]447 [facility] 2022-04-01 13:33:00 30.02 kg/m2 [facility] Oxygen saturation in Arterial blood by Pulse oximetry 2022-04-01 13:33:00 100 /min [facility] Procedures Procedure Date / Time Performed Performing Clinicia n Source EXTERNAL PROVIDER RECORDS 2023-06-12 05:01:00 Doctor Unassigned, [place] [facility] SCANNED LAB RESULTS 2022-11-27 06:01:00 Doctor U nassigned, [place] [facility] Encounters Start Date/Time End Date/Time Encounter Type Admission Type Attending [facility] Facility Care Department Encounter ID Source 2021-09-27 13:33:35 Emergency [facility] [id number] [facility] 2023-09-22 00:00:00 2023-09-22 00:00:00 Outpatient [email or web address] [email or web address]_S PRIV [facility] [id number] [facility] 2023-06-12 00:00:00 2023-06-12 00:00:00 Orders Only Doctor Unassigned, [place] [facility] [id number] [facility] 2023-06-09 09:30:00 2023-06-09 10:00:00 Office Visit Spencer Cox [facility] [id number] [facility] 2023-06-09 09:30:00 2023-06-09 09:30:00 Outpatient R SPENCER COX [facility] [id number] [facility] 2023-06-05 00:00:00 2023-06-05 00:00:00 Kel Gaines [facility] [id number] [facility] 2023-06-05 00:00:00 2023-06-05 00:00:00 Patient Secure Msg Kel Goldsmith [facility] [facility] 1.2.840.114 350.1.13.10 4.2.7.2.686 [id number] [facility] 2023-02-02 00:00:00 2023-02-02 00:00:00 Refill Kel Goldsmith [facility] 1.2.840.114 350.1.13.10 4.2.7.2.686 [id number] [facility] 2023-01-27 00:00:00 2023-01-27 00:00:00 Refill Spencer Cox [facility] 1.2.840.114 350.1.13.10 4.2.7.2.686 [id number] [facility] 2023-01-25 08:00:00 2023-01-25 08:00:00 Outpatient R SPENCER COX [facility] [id number] [facility] 2022-12-09 10:00:00 2022-12-09 10:30:00 Office Visit Kel Goldsmith [facility] 1.2.840.114 350.1.13.10 4.2.7.2.686 [id number] [facility] 2022-12-09 10:00:00 2022-12-09 10:00:00 Outpatient R CINDI GOLDSMITHEY [facility] [id number] [facility] 2022-12-02 08:00:00 2022-12-02 08:00:00 Outpatient R DANA CHI [facility] [id number] [facility] 2022-12-02 00:00:00 2022-12-02 00:00:00 Refill Spencer Cox [facility] 1.2.840.114 350.1.13.10 4.2.7.2.686 [id number] [facility] 2022-11-27 00:00:00 2022-11-27 00:00:00 Orders Only Doctor Unassigned, [place] [facility] 1..114 350.1.13.10 4.2.7.2.686 [id number] [facility] 2022-09-30 07:00:00 2022-09-30 07:00:00 Outpatient R [facility]ER [facility] [id number] [facility] 2022-06-23 00:00:00 2022-06-23 00:00:00 Refill Spencer Cox [facility] 1.840.114 350.1.13.10 4.2.7.2.686 [id number] [facility] 2022-04-24 00:00:00 2022-04-24 00:00:00 Refill Spencer Cox [facility] 1.840.114 350.1.13.10 4.2.7.2.686 [id number] [facility] 2022-04-01 08:30:00 2022-04-01 09:00:00 Office Visit Spencer Cox [facility] 1.84.114 350.1.13.10 4.2.7.2.686 [id number] [facility] 2022-04-01 08:30:00 2022-04-01 08:30:00 Outpatient R [facility]ER [facility] [id number] [facility] 2022-03-25 08:00:00 2022-03-25 08:15:00 Momd Teacher Visit Pob, Adc Lab Main Spencer Cox [facility] 1.2.840.114 350.1.13.10 4.2.7.2.686 [id number] [facility] 2022-03-25 08:00:00 2022-03-25 08:00:00 Outpatient R RADHADAISYD [facility] [id number] [facility] 2022-03-25 00:00:00 2022-03-25 00:00:00 Orders Only Doctor Unassigned, [place] [facility] 1.2.840.114 350.1.13.10 4.2.7.2.686 [id number] [facility] 2022-03-10 00:00:00 2022-03-10 00:00:00 Refbill Daisy Coxdudley Hillman [facility] 1.2.840.114 350.1.13.10 4.2.7.2.686 [id number] [facility] 2022-03-09 00:00:00 2022-03-09 00:00:00 Refill Daisy Coxdudley Hillman [facility] 1.2.840.114 350.1.13.10 4.2.7.2.686 [id number] [facility] 2022-02-18 00:00:00 2022-02-18 00:00:00 Nurse Triage Flakita Barry [facility] 1.2.840.114 350.1.13.10 4.2.7.2.686 [id number] [facility] 2021-11-22 00:00:00 2021-11-22 00:00:00 Orders Only Doctor Unassigned, [place] [facility] 1.2840.114 350.1.13.10 4.2.7.2.686 [id number] [facility] 2021-11-16 00:00:00 2021-11-16 00:00:00 Case Management Roselia Giles Ajith [facility] 1.2.840.114 350.1.13.10 4.2.7.2.686 [id number] [facility] 2021-11-16 00:00:00 2021-11-16 00:00:00 Patient Secure Msg Doctor Unassigned, [place] [facility] 1.2.840.114 350.1.13.10 4.2.7.2.686 [id number] [facility] 2021-10-24 00:00:00 2021-10-24 00:00:00 Telephone Spencer Cox [facility] 1.2.840.114 350.1.13.10 4.2.7.2.686 [id number] [facility] 2021-10-15 00:00:00 2021-10-15 00:00:00 Refill Spencer Cox [facility] 1.2.840.114 350.1.13.10 4.2.7.2.686 [id number] [facility] 2021-09-24 07:56:31 2021-09-24 08:26:31 Office Visit Spencer Cox [facility] 1.2.840.114 350.1.13.10 4.2.7.2.686 [id number] [facility] 2021-09-24 08:00:00 2021-09-24 08:00:00 Outpatient SPENCER CHINCHILLA [facility] [id number] [facility] 2021-09-24 08:00:00 2021-09-24 08:00:00 Outpatient SPENCER CHINCHILLA [facility] [id number] [facility] 2021-09-13 08:21:06 2021-09-13 08:36:06 Momd Teacher Visit Cristian, Adelita Lab Main Daisy Coxd Kieran [facility] 1.2840.114 350.1.13.10 4.2.7.2.686 [id number] [facility] 2021-09-13 08:00:00 2021-09-13 08:00:00 Outpatient R RADHA SPENCER [facility] [id number] [facility] 2021-09-10 00:00:00 2021-09-10 00:00:00 Telephone Spencer Cox [facility] 1.20.114 350.1.13.10 4.2.7.2.686 [id number] [facility] 2021-07-09 08:00:00 2021-07-09 08:00:00 Outpatient R RADHA, SPENCER [facility] [id number] [facility] 2021-07-01 19:52:00 2021-07-05 17:35:00 Emergency NerissaLuiza [facility] 1.20.114 350.1.13.10 4.2.7.2.686 [id number] [facility] 2020-11-30 09:24:01 2020-11-30 09:44:01 Laboratory Only Lab, Adc [facility] 1.0.114 350.1.13.10 4.2.7.2.686 [id number] 2020-11-30 09:24:01 2020-11-30 09:44:01 Laboratory Only Lab, Adc [facility] I Celestino Nelli [facility] 1.2840.114 350.1.13.10 4.2.7.2.686 [id number] [facility] 2020-11-30 09:00:00 2020-11-30 09:00:00 Outpatient NELLI LYONS [facility] [id number] [facility] 2020-11-30 00:00:00 2020-11-30 00:00:00 Letter (Out) Doctor Unassigned, [place] [facility] 1.2.840.114 350.1.13.10 4.2.7.2.686 [id number] 2020-11-30 00:00:00 2020-11-30 00:00:00 Letter (Out) Doctor Unassigned, [place] [id number] 350.1.13.10 4.2.7.2.686 [id number] [facility] 2020-11-21 16:00:00 2020-11-21 16:00:00 Outpatient PRAVEEN MOSQUEDA [facility] [id number] [facility]
--- NOTE | 2023-11-21 19:14 | RAD REPORT ---
EXAM DESCRIPTION: US - Abdomen Exam Limited - 11/21/2023 7:02 pm CLINICAL HISTORY: ABD PAIN COMPARISON: <Comparisons> FINDINGS: The gallbladder demonstrates no gallstones. No pericholecystic fluid or gallbladder wall t hickening. The common bile duct is mildly dilated measuring 6 millimeters. The liver demonstrates no findings of intrahepatic biliary dilatation. IMPRESSION: Negative for cholelithiasis. Common bile duct measures 6 millimeters which is dilated fo r patient's age. Correlate with LFTs. If abnormal, consider MRCP for further evaluation.
[2023-11-21 19:26] LABS: Hematocrit 40.4 % (36.0-45.0); Lymphocytes % 13.9 % (15.3-44.8); MCV 82.3 fL (80-100); MPV 7.1 fL (7.6-11.3); Platelets 353 thou/uL (152-406); RBC Red Blood Cell Count 4.91 M/uL (3.86-4.86)
[2023-11-21 19:30] LABS: Specific Gravity 1.007 (1.005-1.030); Urine Bacteria <20 /HPF (<20); Urine Bilirubin NEGATIVE (Negative); Urine Blood Trace (Negative); Urine Clarity Turbid (Clear); Urine Color Light-Yellow (Yellow); Urine Glucose NEGATIVE (Negative); Urine Protein NEGATIVE (Negative); Urine RBC <5 /HPF (None Seen); Urine Urobilinogen Normal (Normal)
[2023-11-21 19:42] LABS: Bilirubin Total 0.9 mg/dL (0.2-1.0); Potassium 3.6 mEq/L (3.5-5.1); Protein, Total 8.6 g/dL (6.4-8.2)
--- NOTE | 2023-11-21 20:42 | RAD REPORT ---
EXAM DESCRIPTION: CTAbdomen Pelvis W Contrast - 11/21/2023 8:31 pm CLINICAL HISTORY: ABD PAIN COMPARISON: Abdomen Pelvis W Contrast dated 09/01/2022; Abdomen Pelvis W Contrast dated 05/12/2021 TECHNIQUE: CT of the abdomen and pelvis was performed. All CT scans are performed using dose optimization technique as appropriate and may include automated exposure control or mA/KV adjustment according to patient size. FINDINGS: Lower chest: No acute abnormality. Liver: Hepatic steatosis Biliary: No biliary ductal dilatation. Stomach: No significant focal abnormality. Duodenum: No significant focal abnormality. Pancreas: No significant abnormality. Spleen: No significant abnormality. Adrenal: No suspicious lesions. Kidney/ureter: No hydronephrosis. No renal calculi. Retroperitoneum: No retroperitoneal adenopathy. Vascular: No aneurysm. Bowel: No significant focal abnormality. Normal appendix. Peritoneum: No ascites or free air. Tiny fat containing umbilical hernia. Bladder: Grossly unremarkable. Reproductive: Bilateral adnexal lesions, the largest measuring 4.4 cm which not require follow-up in a premenopausal patient. Bones: No acute fracture. Mild disc height loss L5-S1. Sclerosis at the L5 vertebral body is unchange d since prior exams and is benign. Other: n/a IMPRESSION: No acute intra-abdominal or pelvic finding.
--- NOTE | 2023-11-21 21:48 | RAD REPORT ---
EXAM DESCRIPTION: RAD - Chest Single View - 11/21/2023 9:36 pm CLINICAL HISTORY: COUGH COMPARISON: <Comparisons> FINDINGS: Lines: None. Lungs: No evidence of edema or pneumonia. Pleural: No significant pleural effusions or pneumothorax. Cardiac: The heart size is within normal limits. Mediastinum: Within normal limits. Bones: No acute fractures. Other: None IMPRESSION: No acute cardiopulmonary disease.
--- NOTE | 2023-11-21 22:22 | EDPHYS ---
Physician Documentation [facility] Name: Justine Jensen Age: 43 yrs Sex: Female : 1980 Arrival Date: 11/21/2023 Time: 18:01 Bed 12 Private MD: ED Physician Vincent Saunders HPI: 11/21 21:52 This 43 yrs old Female presents to ER via Ambulatory with complaints of kb Abdominal Pain, Fever, Nausea. 21:52 Patient is a 43-year-old female with chronic pancreatitis who presents for nausea, kb fever, chills and right upper quadrant pain that started yesterday. States her PCP thought it was her appendix so sent her in for evaluation.. Historical: - Allergies: 18:06 No Known Allergies; ll1 - PMHx: 18:06 Chronic Pancreatitis; ll1 - PSHx: 18:30 section; ll1 - Immunization history:: Adult Immunizations up to date. - Social history:: Smoking status: Patient denies any tobacco usage or history of. ROS: 21:52 Respiratory: Negative for shortness of breath, cough, wheezing, and pleuritic chest kb pain, 21:52 Constitutional: Positive for body aches, chills, fever, 21:52 Abdomen/GI: Positive for abdominal pain, nausea, vomiting, 21:52 All other systems are negative, 21:52 Neuro: Positive for headache, kb Exam: 21:52 Constitutional: This is a well developed, well nourished patient who is awake, alert, kb and in no acute distress. Head/Face: Normocephalic, atraumatic. ENT: Moist Mucous membranes Cardiovascular: Regular rate Respiratory: Respirations even and unlabored. No increased work of breathing. Talking in full sentences Skin: Warm, dry with normal turgor. Normal color. MS/ Extremity: Pulses equal, no cyanosis. Neurovascular intact. Full, normal range of motion. Neuro: Awake and alert, GCS 15, oriented to person, place, time, and situation. Moves all extremities. Normal gait. 21:52 Abdomen/GI: Inspection: abdomen appears normal, Bowel sounds: normal, Palpation: soft, in all quadrants, mild abdominal tenderness, in the right upper quadrant, Vital Signs: 18:29 BP 142 / 90; Pulse 113; Resp 18; Temp 99; Pulse Ox 98% ; Weight 84.37 kg; Height 5 ft. ll1 0 in. ; Pain 10/10; 19:31 Temp 100.3(O); rv 22:35 BP 107 / 73; Pulse 83; Resp 16; Temp 99(O); Pain 0/10; kl 18:29 Body Mass Index 36.33 (84.37 kg, 152.4 cm) ll1 18:29 Pain Scale: Adult ll1 22:35 Pain Scale: Adult kl MDM: 18:04 Patient medically screened. kb 21:53 Differential diagnosis: appendicitis, cholecystitis, Cholelithiasis, non-specific abd kb pain, pancreatitis, urinary tract infection, covid, flu, pneumonia. Data reviewed: vital signs, nurses notes. 22:20 Counseling: I had a detailed discussion with the patient and/or guardian regarding the kb historical points, exam findings, and any diagnostic results supporting the discharge/admit diagnosis, lab results, radiology results, the need for outpatient follow up, a family practitioner, a head batcher, to return to the emergency department if symptoms worsen or persist or if there are any questions or concerns that arise at home. 11/21 18:31 Order name: CBC with Diff; Complete Time: 19:39 kb 11/21 18:31 Order name: CMP; Complete Time: 19:47 kb 11/21 18:31 Order name: Lipase; Complete Time: 19:47 kb 11/21 18:31 Order name: Test, Urine; Complete Time: 19:31 kb 11/21 18:31 Order name: Urinalysis w/ reflexes; Complete Time: 19:31 kb 11/21 20:53 Order name: Flu; Complete Time: 22:04 kb 11/21 20:53 Order name: Strep kb 11/21 20:53 Order name: COVID-19 SARS RT PCR; Complete Time: 22:09 kb 11/21 20:53 Order name: [place] Screen Profile; Complete Time: 21:32 kb 11/21 22:00 Order name: Throat Culture EDMS 11/21 18:31 Order name: Abdomen Limited US; Complete Time: 19:17 kb 11/21 19:31 Order name: CT Abd/Pelvis - IV Contrast Only; Complete Time: 20:42 kb 11/21 20:53 Order name: Chest Single View XRAY; Complete Time: 21:50 kb 11/21 18:31 Order name: IV Saline Lock; Complete Time: 19:20 kb 11/21 18:31 Order name: Labs collected and sent; Complete Time: 19:20 kb Administered Medications: 19:30 Drug: Famotidine IVP 20 mg IVP once; dilute with 10 mL 0.9% NaCl; give over 2 minutes rv Route: IVP; Site: right antecubital; 19:31 Drug: NS 0.9% IV 1000 ml IV at 1 bolus Per protocol; 1000 mL bolus Route: IV; Rate: 1 rv bolus; Site: right antecubital; 19:31 Drug: TORadol - Ketorolac IVP 15 mg IVP once Route: IVP; Site: right antecubital; rv 19:31 Drug: Ondansetron IVP 4 mg IVP once; over 2 minutes Route: IVP; Site: right antecubital;rv 21:10 Drug: Ibuprofen PO 600 mg PO once Route: PO; rv 21:10 Drug: Acetaminophen PO 1000 mg PO once Route: PO; rv Disposition Summary: 11/21/23 22:21 Discharge Ordered Notes: Location: Home kb Condition: Stable kb Diagnosis - Fever, unspecified kb - Upper abdominal pain, unspecified kb Followup: kb - With: Emergency Department - When: As needed - Reason: Worsening of condition Followup: kb - With: Private Physician - When: 2 - 3 days - Reason: Recheck today's complaints, Continuance of care, Re-evaluation by your physician Discharge Instructions: - Discharge Summary Sheet kb - Abdominal Pain, Adult, K[place]-it-Otta kb - Fever, Adult, Rqea-[id number] kb Forms: - Medication Reconciliation Form kb - Thank You Letter kb - Antibiotic Education kb - Prescription Opioid Use kb - Patient Portal Instructions kb - Leadership Thank You Letter kb Addendum: 11/23/2023 09:20 I was immediately available for consultation during this patient's visit. I did not e c2 personally see the patient or guide the patient's care. . Signatures: Dispatcher [employer] Kae Singer, HOSEA-C MEASUREMENT ADVISOR-Soren Dinero RN RN Waldo Castrejon RN RN ll1 Vincent Saunders MD MD ec2 Corrections: (The following items were deleted from the chart) 11/21 22:21 21:52 Constitutional: Positive for chills, fever, kb kb
--- NOTE | 2023-11-21 22:22 | ER ---
Nurse's Notes [facility] Name: Justine Jensen Age: 43 yrs Sex: Female : 1980 Arrival Date: 11/21/2023 Time: 18:01 Bed 12 Private MD: Diagnosis: Fever, unspecified;Upper abdominal pain, unspecified Presentation: 11/21 18:22 Chief complaint: Chief complaint: Patient states: RUQ abd pain with nausea, chills, ll1 fever started yesterday. 18:29 Coronavirus screen: Client denies travel out of the [place] in the last 14 days. fatigue, ll1 fever, nausea, Client presents with at least one sign or symptom that may indicate coronavirus-19. Standard/surgical mask placed on the client. Ebola Screen: Patient denies travel to an Ebola-affected area in the 21 days before illness onset. Initial Sepsis Screen: Does the patient meet any 2 criteria? No. Patient's initial sepsis screen is negative. Does the patient have a suspected source of infection? Yes: Acute abdominal pain. Risk Assessment: Do you want to hurt yourself or someone else? Patient reports no desire to harm self or others. Onset of symptoms was November 20, 2023. 18:29 Method Of Arrival: Ambulatory ll1 18:29 Acuity: KIMMY 3 ll1 Triage Assessment: 18:22 General: Appears uncomfortable, ill, Behavior is calm, cooperative, appropriate for ll1 age, Reports fever for fatigue for. Pain: Complains of pain in RUQ. GI: Reports upper abdominal pain, cramping, nausea. Historical: - Allergies: 18:06 No Known Allergies; ll1 - PMHx: 18:06 Chronic Pancreatitis; ll1 - PSHx: 18:30 section; ll1 - Immunization history:: Adult Immunizations up to date. - Social history:: Smoking status: Patient denies any tobacco usage or history of. Screenin:20 [facility] ED Fall Risk Assessment (Adult) History of falling in the last 3 months, rv including since admission No falls in past 3 months (0 pts) Score/Fall Risk Level 0 - 2 = Low Risk Oriented to surroundings, Maintained a safe environment, Educated pt \T\ family on fall prevention, incl call for assistance when getting out of bed, Assessed \T\ reinforced patient's understanding of fall precautions. Abuse screen: Denies threats or abuse. Denies injuries from another. Nutritional screening: No deficits noted. Tuberculosis screening: No symptoms or risk factors identified. Assessment: 22:35 Reassessment: Patient appears in no apparent distress at this time. Patient denies pain kl at this time. Patient states feeling better. Patient states symptoms have improved. 22:35 GI: Bowel sounds present X 4 quads. Abd is soft Abd is non tender. kl Vital Signs: 18:29 BP 142 / 90; Pulse 113; Resp 18; Temp 99; Pulse Ox 98% ; Weight 84.37 kg; Height 5 ft. ll1 0 in. ; Pain 10/10; 19:31 Temp 100.3(O); rv 22:35 BP 107 / 73; Pulse 83; Resp 16; Temp 99(O); Pain 0/10; kl 18:29 Body Mass Index 36.33 (84.37 kg, 152.4 cm) ll1 18:29 Pain Scale: Adult ll1 22:35 Pain Scale: Adult kl ED Course: 18:03 Patient arrived in ED. mr 18:04 Kae Newman, HO[place] [facility] kb 18:04 Vincent Saunders MD is Attending Physician. kb 18:06 Arm band placed on. ll1 18:30 Triage completed. ll1 19:04 Abdomen Limited US In Process Unspecified. EDMS 19:20 Soren Shields, [place] is Primary Nurse. rv 19:20 Patient has correct armband on for positive identification. Client placed on continuous rv cardiac and pulse oximetry monitoring. NIBP monitoring applied. 19:20 Inserted saline lock: 20 gauge in right antecubital area, using aseptic technique. rv Blood collected. 19:20 No provider procedures requiring assistance completed. rv 20:33 CT Abd/Pelvis - IV Contrast Only In Process Unspecified. EDMS 21:37 Chest Single View XRAY In Process Unspecified. EDMS 22:35 IV discontinued, intact, bleeding controlled, No redness/swelling at site. Pressure kl dressing applied. 22:36 Provided Education on: diet. kl Administered Medications: 19:30 Drug: Famotidine IVP 20 mg IVP once; dilute with 10 mL 0.9% NaCl; give over 2 minutes rv Route: IVP; Site: right antecubital; 19:31 Drug: NS 0.9% IV 1000 ml IV at 1 bolus Per protocol; 1000 mL bolus Route: IV; Rate: 1 rv bolus; Site: right antecubital; 19:31 Drug: TORadol - Ketorolac IVP 15 mg IVP once Route: IVP; Site: right antecubital; rv 19:31 Drug: Ondansetron IVP 4 mg IVP once; over 2 minutes Route: IVP; Site: right antecubital;rv 21:10 Drug: Ibuprofen PO 600 mg PO once Route: PO; rv 21:10 Drug: Acetaminophen PO 1000 mg PO once Route: PO; rv Medication: 19:20 VIS not applicable for this client. rv Outcome: 22:21 Discharge ordered by . meri 22:35 Discharged to home ambulatory, rafael 22:35 Condition: improved 22:35 Discharge instructions given to patient, Instructed on discharge instructions, follow up and referral plans. Demonstrated understanding of instructions, follow-up care, 22:36 Patient left the ED. Signatures: Dispatcher [employer] EDMS Kae Newman, ZIPPER LINING FOLDER-C ZIPPER LINING FOLDER-CkTeresa Rocha, RN RN Hannah Butt, [facility] mr Soren Shields RN RN rv Lewis, Lynsay, RN RN ll1 Corrections: (The following items were deleted from the chart) 18:30 18:22 Chief complaint: ll1 ll1 18:31 18:29 BP 142 / 90; Pulse 113bpm; Resp 18bpm; Pulse Ox 98%; Temp 99F; ll1 ll1
[2023-11-22 04:20] VITALS: BP 107/73; TEMP 99; O2SAT 98
== END ==
LOC: ER 18:01
DX: R50.9 Fever, unspecified (principal); R10.11 Right upper quadrant pain; Z11.52 Encounter for screening for COVID-19
CPT/HCPCS: 36415; 71045; 74177; 76705; 80053; 81001; 81025; 83690; 85025; 86308; 87070; 87081; 87635; 87804; 96374; 96375; 99284; J2405; J7030; Q9967